=== PATIENT | female | born 2000 | race Caucasian/White ===

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

== ENCOUNTER 2021-07-09 13:35 | Inpatient (IN) ==
[2021-07-09 14:11] LABS: Glucose,Urine (UA) Negative (Negative); Ketones,Urine Negative (Negative); Nitrite,Urine Negative (Negative); Protein,Urine Negative (Negative); Urine Appearance Clear (Clear); Urine Color Yellow (Yellow); Urine Specific Gravity 1.015 (1.001-1.035); Urine pH 7.5 (4.5-8.0)
[2021-07-09 14:12] LABS: Bilirubin,Urine Negative (Negative); Blood, Urine Negative (Negative); Urine Urobilinogen 0.2 eU/dL (<2.0)
[2021-07-09 14:14] LABS: Bacteria,Urine Occasional /HPF (Few); Hyaline Casts,Urine 1 /LPF (0-3); RBC,Urine 2 /HPF (0-4); Squamous Epithelial Cell,Urine Occasional /HPF (0-10)
[2021-07-09] MEDS ORDERED: TRANEXAMIC ACID 1,000 MG in SODIUM CHLORIDE 0.9% 100 ML IV PRN (14:44)
[2021-07-09] MEDS ORDERED: METHYLERGONOVINE 0.2 MG/1 ML AMP IM PRN (14:44)
[2021-07-09] MEDS ORDERED: OXYTOCIN/LR 20 UNIT/1,000 ML BAG IV ONE (14:44)
[2021-07-09] MEDS ORDERED: LACTATED RINGERS 250 ML IV ONE (14:44)
[2021-07-09] MEDS ORDERED: CARBOPROST TROMETHAMINE 250 MCG/ML AMP IM PRN (14:44)
[2021-07-09] MEDS ORDERED: miSOPROStoL 200 MCG TABLET RECTAL PRN (14:44)
[2021-07-09] MEDS ORDERED: LACTATED RINGERS 1,000 ML IV SCH (15:00)
[2021-07-09 15:14] LABS: Basophils % 0.1 % (0.0-0.8); Eosinophils # 0.1 10*3/uL (0.0-0.87); Eosinophils % 0.9 % (0.00-10.9); Hematocrit 34.2 VOL% (35.7-47.0); Hemoglobin 10.9 GM/DL (12.0-16.0); Immature Granulocytes % 0.4 %; Immature Granulocytes Absolute 0.03 #; Mean Corpuscular HGB Conc 31.9 GM/DL (32-36); Mean Corpuscular Volume 79.4 FL (87-102); Monocytes # 0.7 10*3/uL (0.11-0.8); Neutrophils % 57.6 % (38.7-73.9); Platelet Count 310 T/CUMM (130-400); Red Blood Count 4.31 MC/CUMM (3.8-5.5); Red Cell Distribution Width 12.4 % (9.3-17.3); White Blood Count 6.7 T/CUMM (4-12)
[2021-07-09] MEDS: LABETALOL 200 MG TABLET PO SCH (21:36)
[2021-07-10] MEDS: FAMOTIDINE 20 MG TABLET PO SCH ×2 (00:17→22:23)
[2021-07-10] MEDS: ONDANSETRON 4 MG/2 ML VIAL IV PRN ×3 (01:04→17:43)
[2021-07-10] MEDS: BUTORPHANOL 2 MG/ML VIAL IV PRN ×4 (01:11→18:43)
[2021-07-10] MEDS: LABETALOL 200 MG TABLET PO SCH ×4 (06:20→22:00)
[2021-07-10] MEDS ORDERED: MEPERIDINE 50 MG/1 ML VIAL IV PRN (06:58)
[2021-07-10] MEDS ORDERED: ePHEDrine 50 MG/ML VIAL IV PRN (23:00)
[2021-07-10] MEDS ORDERED: NALOXONE 0.4 MG/ML VIAL IV PRN (23:00)
[2021-07-10] MEDS ORDERED: fentaNYL 2 MCG/ROPIV 0.2% EPID 100 ML EPIDURAL SCH (23:00)
[2021-07-10] MEDS ORDERED: diphenhydrAMINE 50 MG/1 ML VIAL IV PRN (23:00)
[2021-07-10] MEDS ORDERED: CITRIC ACID/SODIUM CITRATE 30 ML UDCUP PO ONE (23:01)
[2021-07-10] MEDS ORDERED: FAMOTIDINE 20 MG/2 ML VIAL IV ONE (23:01)
[2021-07-11] MEDS ORDERED: OXYTOCIN/LR 20 UNIT/1,000 ML BAG IV ONE ×3 (00:36→04:26)
[2021-07-11] MEDS ORDERED: SODIUM CHLORIDE 0.9% 0 ML IV ONE (00:37)
[2021-07-11] MEDS ORDERED: miSOPROStoL 200 MCG TABLET ONE (00:37)
[2021-07-11] MEDS ORDERED: METHYLERGONOVINE 0.2 MG/1 ML AMP ONE (00:37)
[2021-07-11] MEDS ORDERED: TRANEXAMIC ACID 1,000 MG/10 ML VIAL ONE (00:37)
[2021-07-11] MEDS ORDERED: CARBOPROST TROMETHAMINE 250 MCG/ML AMP IM ONE (00:38)
[2021-07-11] MEDS: ONDANSETRON 4 MG/2 ML VIAL IV PRN (00:45)
[2021-07-11 02:05] LABS: Cord Arterial Blood HCO3 21.7 MMOL/L
[2021-07-11 02:08] LABS: Cord Venous Blood HCO3 22.3 MMOL/L; Cord Venous Blood PCO2 43.6 MMHG; Cord Venous Blood PO2 26.7
[2021-07-11] MEDS ORDERED: OXYTOCIN/LR 20 UNIT/1,000 ML BAG IV SCH (04:00)
[2021-07-11] MEDS ORDERED: MEASLES/MUMPS/RUBELLA VACCINE 0.5 ML VIAL SUBCUT ONE (04:26)
[2021-07-11] MEDS ORDERED: DIPH/TET/ACEL PERT BOOSTER VACCINE 0.5 ML VIAL IM ONE (04:26)
[2021-07-11] MEDS ORDERED: ACETAMINOPHEN 325 MG TABLET PO PRN (04:26)
[2021-07-11] MEDS ORDERED: LANOLIN 50% CREAM 0.3 OZ TUBE TOP PRN (04:26)
[2021-07-11] MEDS ORDERED: HYDROCORTISONE 2.5% RECTAL CREAM 30 GM TUBE TOP PRN (04:26)
[2021-07-11] MEDS ORDERED: oxyCODONE/ACETAMINOPHEN 5-325 MG TABLET PO PRN (04:26)
[2021-07-11] MEDS ORDERED: ONDANSETRON 4 MG/2 ML VIAL IV PRN (04:26)
[2021-07-11] MEDS ORDERED: RHO(D) IMMUNE GLOBULIN 300 MCG SYRINGE IM ONE (04:26)
[2021-07-11] MEDS ORDERED: WITCH HAZEL PADS 100/JAR TOP PRN (04:26)
[2021-07-11] MEDS ORDERED: BISACODYL 10 MG SUPP RECTAL PRN (04:26)
[2021-07-11] MEDS ORDERED: IBUPROFEN 800 MG TABLET PO PRN (04:26)
[2021-07-11] MEDS ORDERED: BENZOCAINE 20%/MENTHOL 0.5% SPRAY 56 GM CAN TOP PRN (04:26)
[2021-07-11] MEDS: oxyCODONE/ACETAMINOPHEN 5-325 MG TABLET PO PRN (04:46)
[2021-07-11] MEDS: LABETALOL 200 MG TABLET PO SCH ×2 (06:00→13:51)
[2021-07-11] MEDS: DOCUSATE SODIUM 100 MG CAPSULE PO SCH ×2 (10:06→20:24)
[2021-07-11] MEDS ORDERED: SIMETHICONE CHEW 80 MG TABLET PO PRN (13:01)
[2021-07-11] MEDS: FAMOTIDINE 20 MG TABLET PO SCH (20:24)
[2021-07-12] MEDS: LABETALOL 200 MG TABLET PO SCH ×5 (02:06→21:15)
[2021-07-12 05:25] LABS: Basophils % 0.3 % (0.0-0.8); Eosinophils # 0.2 10*3/uL (0.0-0.87); Eosinophils % 2.6 % (0.00-10.9); Hemoglobin 10.3 GM/DL (12.0-16.0); Immature Granulocytes % 0.3 %; Immature Granulocytes Absolute 0.02 #; Lymphocytes # 1.7 10*3/uL (1.4-4.0); Lymphocytes % 28.5 % (21.3-54.2); Mean Corpuscular HGB Conc 32.2 GM/DL (32-36); Mean Corpuscular Volume 79.4 FL (87-102); Mean Platelet Volume 10.3 FL (9.6-12.0); Monocytes # 0.6 10*3/uL (0.11-0.8); Monocytes % 9.5 % (1.7-12.7); Neutrophils % 58.8 % (38.7-73.9); Platelet Count 263 T/CUMM (130-400); Red Blood Count 4.03 MC/CUMM (3.8-5.5); Red Cell Distribution Width 12.4 % (9.3-17.3); White Blood Count 6.1 T/CUMM (4-12)
[2021-07-12] MEDS: oxyCODONE/ACETAMINOPHEN 5-325 MG TABLET PO PRN (07:35)
[2021-07-12] MEDS: DOCUSATE SODIUM 100 MG CAPSULE PO SCH ×2 (08:35→21:15)
[2021-07-12] MEDS: FAMOTIDINE 20 MG TABLET PO SCH (22:00)
[2021-07-13] MEDS: LABETALOL 200 MG TABLET PO SCH (06:26)
[2021-07-13 07:23] VITALS: BP 109/56
[2021-07-13] MEDS: DOCUSATE SODIUM 100 MG CAPSULE PO SCH (08:21)
== END 2021-07-13 08:52 | disposition home or self-care (01) | DRG 560 ==
LOC: N.LDOUT 13:35 → N.LD 13:36 → N.OB 07-11 04:25
PROVIDERS: ADMIT Specialist; ATTEND Specialist